=== PATIENT | female | born 1975 | race Caucasian/White ===

== ENCOUNTER 2017-08-17 08:38 | Emergency (ER) | END 2017-08-17 11:20 | disposition home or self-care (01) ==

== ENCOUNTER 2018-04-12 01:36 | Emergency (ER) | END 2018-04-12 04:55 | disposition home or self-care (01) ==

== ENCOUNTER 2018-05-30 14:44 | Emergency (ER) | END 2018-05-30 19:12 | disposition home or self-care (01) ==

== ENCOUNTER 2019-01-10 07:26 | Emergency (ER) | payer SELFPAY ==
[~2019-01-10] VITALS: Ht 162.6 cm; Wt 76.0 kg
[~2019-01-10 07:26] MED LIST: ACET500C5 PO; CEPH-443 PO; DICY10CA40 PO; GLIP10TA14 PO; HYDR-4011 PO; IBUP-1542 PO; IBUP800T48 PO; METF-480 PO; ONDA4TAB13 PO; ONDA4TAB14 PO
[2019-01-10 07:33] VITALS: Ht 162.6 cm; Wt 76.0 kg
[2019-01-10] MEDS ORDERED: KETOROLAC 15 MG INJ IV STA (07:40)
[2019-01-10] MEDS ORDERED: SODIUM CHLORIDE 0.9% 1L BAG IV* STA (07:40)
[2019-01-10] MEDS ORDERED: ACETAMINOPHEN 325 MG TAB PO ONE (08:00)
--- NOTE | 2019-01-10 08:08 | ERD ---
ER Documentation Chief Complaint Chief Complaint pt is bib family, chest wall pain, dizziness, fever since last night HPI This is a 43-year-old female with a past medical history of diabetes who is presenting for 1 day of fever, chills, palpitations, feeling generally unwell with full body aches and pains. The patient endorses chest tightness and shortness of breath. She does not endorse chest pain to me. She does not endorse a cough. The patient does also endorse dysuria with increased urinary frequency and urgency. Her urine has been darker than normal, but she does not endorse any obvious hematuria. The patient does report bilateral flank pain as well. She does not endorse an earache. She does not endorse a sore throat. She does not endorse abdominal pain. She denies diarrhea. She does not endorse any skin changes. She does not endorse any alleviating or exacerbating factors. She does not report taking Tylenol or Motrin at home. The patient was febrile and tachycardic in the triage area. The patient has had no headache or vision changes. The patient does not endorse neck or back pain. The patient denies lightheadedness or dizziness. The patient denies nausea or vomiting. The patient has had no focal deficits. The patient has had no weakness or numbness or tingling to the face or extremities. ROS All systems reviewed and are negative except as per history of present illness. Medications Home Meds Reported Medications Acetaminophen* (Tylophen*) 500 Mg Capsule, 1000 MG PO Q6H PRN for PAIN, TAB 01/10/19 Metformin* (Glucophage*) 850 Mg Tablet, 850 MG PO BID, #60 TAB 01/10/19 Glipizide* (Glipizide*) 10 Mg Tablet, 20 MG PO BID, TAB 01/10/19 Discontinued Scripts Hydrocodone/Acetaminophen ([place] 5-325 Tablet) 1 Each Tablet, 1 TAB PO Q6H PRN for PAIN, #7 TAB Prov:OLVIN VACA MD 05/30/18 Ondansetron Hcl* (Zofran*) 4 Mg Tab, 4 MG PO Q4H PRN for NAUSEA AND OR VOMITING, #12 TAB Prov:OLVIN VACA MD 05/30/18 Ibuprofen* (Motrin*) 800 Mg Tab, 800 MG PO Q6H PRN for PAIN AND OR ELEVATED TEMP, #30 TAB Prov:ANTHONY REYES MD 04/12/18 Ondansetron (Ondansetron Odt) 4 Mg Tab.rapdis, 4 MG PO Q6H PRN for NAUSEA AND/OR VOMITING, #20 TAB Prov:ANTHONY REYES MD 04/12/18 Dicyclomine HCl (Dicyclomine HCl) 10 Mg Capsule, 10 MG PO TID PRN for ABDOMINAL CRAMPING, #20 CAP Prov:ANTHONY REYES MD 04/12/18 Allergies Allergies: Coded Allergies: No Known Drug Allergies (Unverified Allergy, Mild, 01/10/19) PMhx/Soc History of Surgery: Yes (C- SECTION) Anesthesia Reaction: No Hx Neurological Disorder: No Hx Respiratory Disorders: No Hx Cardiac Disorders: No Hx Psychiatric Problems: No Hx Miscellaneous Medical Probl: Yes (DM) Hx Alcohol Use: No Hx Substance Use: No Hx Tobacco Use: No Smoking Status: Never smoker FmHx Family History: No diabetes Physical Exam Vitals Vital Signs Date Temp Pulse Resp B/P (MAP) Pulse Ox O2 O2 Flow FiO2 Time Delivery Rate 01/10/19 98.8 81 24 107/70 99 Room Air 10:03 (82) 01/10/19 98.9 94 21 127/80 98 Room Air 08:37 (96) 01/10/19 100.6 07:59 01/10/19 Nasal 3 07:50 Cannula 01/10/19 100.6 124 18 140/81 99 07:33 (100) Physical Exam Const: No acute distress Head: Atraumatic Eyes: Normal Conjunctiva ENT: Normal External Ears, Nose and Mouth. Neck: Full range of motion. No meningismus. Resp: Clear to auscultation bilaterally Cardio: Regular rhythm. Tachycardia. No murmurs Abd: Soft, non tender, non distended. Normal bowel sounds Skin: No petechiae or rashes Back: No midline or flank tenderness Ext: No cyanosis, or edema Neur: Awake and alert Psych: Normal Mood and Affect Result Diagram: 01/10/19 0748 01/10/19 0748 Results 24 hrs Laboratory Tests Test 01/10/19 07:48 01/10/19 07:50 01/10/19 08:10 01/10/19 08:21 White Blood Count 9.5 10^3/ul Red Blood Count 4.64 10^6/ul Hemoglobin 12.9 g/dl Hematocrit 38.9 % Mean Corpuscular 83.8 fl Volume Mean Corpuscular 27.8 pg Hemoglobin Mean Corpuscular 33.2 g/dl Hemoglobin Concent Red Cell 13.0 % Distribution Width Platelet Count 243 10^3/UL Mean Platelet 9.3 fl Volume Immature 0.400 % Granulocytes % Neutrophils % 82.5 % Lymphocytes % 11.6 % Monocytes % 4.5 % Eosinophils % 0.5 % Basophils % 0.5 % Nucleated Red Blood 0.0 /100WBC Cells % Immature 0.040 10^3/ul Granulocytes # Neutrophils # 7.8 10^3/ul Lymphocytes # 1.1 10^3/ul Monocytes # 0.4 10^3/ul Eosinophils # 0.1 10^3/ul Basophils # 0.1 10^3/ul Nucleated Red Blood 0.0 10^3/ul Cells # Prothrombin Time 13.7 Sec Prothrombin Time 1.1 Ratio INR International 1.04 Normalized Ratio Activated 28.1 Sec Partial Thromboplas t Time Sodium Level 138 mmol/L Potassium Level 4.6 mmol/L Chloride Level 102 mmol/L Carbon Dioxide 27 mmol/L Level Anion Gap 9 Blood Urea Nitrogen 10 mg/dl Creatinine 0.58 mg/dl Est Glomerular > 60 mL/min Filtrat Rate mL/min Glucose Level 217 mg/dl Calcium Level 9.6 mg/dl Total Bilirubin 0.7 mg/dl Direct Bilirubin 0.00 mg/dl Indirect Bilirubin 0.7 mg/dl Aspartate Amino 25 IU/L Transf (AST/SGOT) Alanine 31 IU/L Aminotransferase (A LT/SGPT) Alkaline 162 IU/L Phosphatase Troponin I < 0.012 ng/ml Total Protein 8.7 g/dl Albumin 4.2 g/dl Globulin 4.50 g/dl Albumin/Globulin 0.93 Ratio POC Venous Lactate 1.9 mmol/L Urine Color YELLOW Urine Clarity CLOUDY Urine pH 6.0 Urine Specific 1.011 Maple Urine Ketones 1+ mg/dL Urine Nitrite NEGATIVE mg/dL Urine Bilirubin NEGATIVE mg/dL Urine Urobilinogen NEGATIVE mg/dL Urine Leukocyte 3+ Geovanny/ul Esterase Urine Microscopic > 182 /HPF RBC Urine Microscopic > 182 /HPF WBC Urine Squamous FEW /HPF Epithelial Cells Urine Renal FEW /HPF Epithelial Cells Urine Bacteria MANY /HPF Urine Hemoglobin 3+ mg/dL Urine Glucose NEGATIVE mg/dL Urine Total Protein 1+ mg/dl POC Beta HCG, NEGATIVE Qualitative Current Medications Medications Dose Sig/Anita Start Time Status Last (Trade) Ordered Route PRN Stop Time Admin Dose Reason Admin Sodium 2,280 ml BOLUS OVER 2 01/10/19 DC 01/10/19 Chloride HOURS STAT 07:40 01/10/19 08:00 (NS) IV* 07:42 650 mg ONCE ONCE 01/10/19 DC 01/10/19 Acetaminophen PO 08:00 01/10/19 07:59 (Tylenol 08:01 Tab) Ketorolac 15 mg ONCE STAT 01/10/19 DC 01/10/19 Tromethamine IV 07:40 01/10/19 08:24 (Toradol) 07:42 Ceftriaxone 50 ml @ ONCE ONCE 01/10/19 DC 01/10/19 Sodium 100 mls/hr IVPB 09:30 01/10/19 09:56 09:59 Procedures/MDM MDM The patient's presentation warrants further investigation. Previous medical records, if available, were reviewed. LABS The patient's laboratory testing was obtained and reviewed. No emergent treatment was required unless described below. CBC: No E/o systemic infection or severe anemia or thrombocytopenia Chemistry: No E/o severe acidosis or alkalosis or renal failure or liver disease or diabetic ketoacidosis PT/INR: No E/o significant coagulopathy Lactate: No E/o severe sepsis Troponin: No E/o acute ischemia Urine: No E/o acute infection or hematuria EKG EKG read by me: Rate/Rhythm: Sinus tachycardia at 118 bpm Intervals: Normal [place]: Normal Impression: No evidence of acute ischemia. Sinus tachycardia. IMAGING Imaging and Radiology interpretation reviewed. CXR FINDINGS: The cardiomediastinal silhouette is within normal limits. The lungs are clear without focal consolidation, effusion, or pneumothorax. There are no acute osseous abnormalities. IMPRESSION: No acute cardiopulmonary abnormality. Electronically viewed and signed by Physician Hany on 01/10/2019 08:03 CT Abd/Pelvis FINDINGS: The lung bases are clear. Evaluation of the solid organs is limited due to lack of intravenous contrast. The liver, spleen, adrenal glands, pancreas, gallbladder are normal. The kidneys are normal in size with no evidence of hydronephrosis. No kidney stones are visualized. The aorta is normal in caliber and there is no ascites or retroperitoneal adenopathy. There is no bowel obstruction. Appendix is normal in caliber. The urinary bladder is distended. No pelvic masses or pelvic lymphadenopathy seen. There is no free fluid. The bony pelvis is intact. IMPRESSION: Unremarkable CT scan of the abdomen and pelvis. Electronically viewed and signed by Physician Kaia on 01/10/2019 09:54 TREATMENT/DISPOSITION The patient presents for fever, chills, tachycardia and myalgias. The patient does have a urinary tract infection with hematuria. A CT scan was completed to evaluate for the possibility of pyelonephritis and/or nephrolithiasis. The CT was unremarkable. I do not see evidence of nephrolithiasis at this time. I do not see evidence of urinary obstruction. I have decreased suspicion for pyelonephritis. The patient did meet criteria for a systemic inflammatory response. A sepsis work-up was completed. There is no evidence of endorgan damage. The patient's lactic acid is unremarkable. The patient has no leukocytosis. At this time, I have very low suspicion for sepsis, and I do not feel the patient requires admission for management of her symptoms. The patient also endorses chest tightness and shortness of breath. A cardiac work-up was completed. The patient's chest xray does not reveal pneumonia or pneumothorax or pleural effusions or pulmonary edema. The patient does not have a widened mediastinum and does not have signs or symptoms concerning for thoracic aortic aneurysm or dissection. The patient does not have pneumome diastinum or signs concerning for esophageal tear or rupture. The patient has no clinical or radiographic signs of pericardial effusion or tamponade. The patient does not have pneumoperitoneum and I have decreased suspicion of viscus perforation as possible referred pain. The patient does not have a history of heart failure and I have low suspicion for this. The patient does not have a diagnosis of COPD and is not wheezing today. The patient is not tachypneic or hypoxic. The patient is breathing comfortably and without pleuritic pain. The patient is not on hormonal therapy. The patient has no history of clotting or bleeding disorders. The patient has no calf tenderness. The patient has had no hemoptysis. I have decreased suspicion for PE. The patient's troponin and EKG are reassuring. I have low suspicion for acute coronary syndrome. The patient was treated with IV fluids, Tylenol and Toradol with significant improvement of her symptoms. DISCHARGE Upon reevaluation of the patient, symptoms have improved. No emergent diagnoses were identified. At this time, I feel that the patient stable for discharge. The patient was instructed to follow-up with a primary care physician in 1-3 days. The patient will be given strict precautions with which to return to the emergency department. Prescriptions: Ibuprofen, Keflex The patient's blood pressure was elevated at greater than 120/80 while in the emergency department. The patient was otherwise stable with no evidence of hypertensive urgency or emergency. The patient does not require admission for blood pressure control. I have discussed with the patient the risks of hypertension. I have instructed the patient to return to the ER for any new or worsening symptoms including chest pain, shortness of breath, headache, blurred vision, confusion, nausea, vomiting or LOC. I have advised the patient to follow up with the primary care physician for outpatient monitoring and treatment for hypertension in 1-3 days. DISCLAIMER Inadvertent spelling and grammatical errors are likely due to EHR/dictation software use and do not reflect on the overall quality of patient care. Note that the electronic time recorded on this note does not necessarily reflect the actual time of the patient encounter. Departure Diagnosis: Primary Impression: Viral syndrome Additional Impressions: Fever Fever type: unspecified Qualified Codes: R50.9 - Fever, unspecified Tachycardia Myalgia Condition: Stable Patient Instructions: Chest Pain, Uncertain Cause, Fever Control (Adult), Myalgias, Sinus Tachycardia, Understanding Urinary Tract Infections (UTIs) Additional Instructions: Thank you for for coming to [facility] for your care today. Please ask your nurse or provider if you have questions about your care today and do not leave until all your questions have been answered. Please use any medications given as directed and follow-up with your doctor (or the doctor you were referred to) in the next 1-3 days. If you do not have a primary care doctor you may follow up at the [facility] or [facility] (listed below). You may also use motrin and tylenol as needed for fever and/or pain unless instructed otherwise by your provider or nurse. Indications for more urgent follow-up have been discussed, but you may return to the Emergency Department at ANY time for any worrisome or worsening symptoms. If you have abdominal pain, please know that no test or exam you received is perfect and you should follow up within 8 hours for continued pain. If you had any imaging studies today, such as an X-Ray or CT Scan, these studies will be reviewed later by a radiologist. You will be called if there are impo rtant findings that were not identified today, so make sure the contact information you provided at registration is correct. If you received any narcotic pain control medicine today, such as Vicodin, Morphine or Dilaudid, your coordination and judgment may be affected for a number of hours. Please do not drive or operate heavy machinery, and you may want someone to assist you at home. If you were given a prescription for narcotic medication, be aware that it is very addictive- use sparingly and only if necessary. PLEASE SEEK FURTHER EVALUATION AND MANAGEMENT AT YOUR DOCTORS OFFICE WITHIN THE NEXT 1-3 DAYS. IT IS YOUR RESPONSIBILITY TO MAKE AN APPOINTMENT FOR FOLOW-UP CARE. IF YOU HAVE A PRIMARY DOCTOR, PLEASE CALL THEIR OFFICE TO SCHEDULE AN APPOINTMENT FOR FOLLOW UP. IF YOU DO NOT HAVE A PRIMARY DOCTOR YOU CAN CALL OUR PHYSICIAN REFERRAL HOTLINE AT IF YOU CAN NOT AFFORD TO SEE A PHYSICIAN YOU CAN CHOSE FROM THE FOLLOWING [facility]: [facility] [address] [facility]. [facility] [place] [address] [facility] [facility] [address] [facility] [facility] [address] [facility]. [facility] [address] [facility]. [facility]. [address] LAVONNE ALCOCER MD Jan 10, 2019 08:07
[2019-01-10] MEDS ORDERED: CEFTRIAXONE 1 GM/50 ML (PMX) 50 ML IVPB ONE (09:30)
[2019-01-10 11:27] VITALS: BP 122/65; PULSE 76; RESP 20
== END 2019-01-10 11:28 | disposition home or self-care (01) ==
LOC: E/R 07:26
DX: B34.9 Viral infection, unspecified (principal); R00.0 Tachycardia, unspecified; M79.18 Myalgia, other site; E11.9 Type 2 diabetes mellitus without complications; Z79.84 Long term (current) use of oral hypoglycemic drugs
CPT/HCPCS: 36415; 71045; 74176; 80053; 81001; 81025; 83605; 84484; 85025; 85610; 85730; 87040; 87086; 93005; 96374; 96375; 99285; J0696; J1885; J7030